=== PATIENT | male | born 1955 | race Caucasian/White ===

== ENCOUNTER → 2020-10-03 | Outpatient (CLI) | payer MEDICARE, BC ==
--- NOTE | 2020-10-04 08:55 | RADIOLOGY REPORT (SQ) ---
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 RADIONUCLIDE AND DOSE: 10.5 mCi F18 FDG The route of agent administration: Intravenous FASTING BLOOD SUGAR: 155 mg/dl CONTRAST TYPE AND DOSE: No CT contrast given. TECHNIQUE: Blood glucose level was verified. Above dose of FDG was injected intravenously. 2-D seg mented attenuation correction images were obtained from the base of the skull to the midthighs. Nonc ontrast CT images were obtained for attenuation correction and fusion with emission images. CT image s were performed without oral or intravenous contrast and are not sensitive for parenchymal lesions. A series of overlapping emission PET images were obtained. Images reviewed and manipulated at [facility] work station by the radiologist. Images stored on PACS. LIMITATIONS: None. FINDINGS: HEAD AND NECK: No areas of abnormal metabolic activity in the soft tissues of the head and neck. CHEST: There is upper lobe predominant upper lobe predominant centrilobular emphysema. The 5.4 x 3.2 cm spiculated mass in the right lower lobe that abuts the pleura (image 117 of series 3) demonstrate s intensely avid FDG uptake with a maximum SUV of 11.6. There are enlarged FDG avid right hilar, rig ht lower paratracheal and right upper paratracheal lymph nodes; for reference the 28 mm short axis ri ght lower paratracheal lymph node on image 94 of series 3 has a maximum SUV of 10.6. The 12 mm short axis subcarinal lymph node on image 106 of series 3 demonstrates no abnormal uptake on PET. There i s no FDG avid left hilar adenopathy. ABDOMEN AND PELVIS: The liver demonstrates homogeneous FDG uptake with an average SUV of 1.9. There is expected physiologic activity throughout the gastrointestinal and genitourinary tracts. There no areas of abnormal metabolic activity in the abdomen and pelvis. PROXIMAL LOWER EXTREMITIES: No areas of abnormal metabolic activity in the soft tissues of the lower extremities. BONES: No areas of abnormal metabolic activity in the skeleton. ADDITIONAL CT FINDINGS: There is atherosclerotic calcification of the coronary arteries and aortic va lve leaflets. The thoracic and abdominal aortas are nonaneurysmal. OTHER: No other findings. IMPRESSION: 1. FDG avid spiculated mass in the right lower lobe concerning for a malignant neoplasm. 2. FDG avid metastatic right hilar, right lower peritracheal and right upper peritracheal adenopathy . TECHNICAL DOCUMENTATION: JOB ID: [id number] 2010 [employer]- All Rights Reserved Reading location - IP/workstation name: [email or web address]
== END ==
LOC: RAD 08:32
PROVIDERS: ATTEND Internal Medicine Hematology & Oncology
DX: C34.11 Malignant neoplasm of upper lobe, right bronchus or lung (principal)
CPT/HCPCS: 78815; A9552